=== PATIENT | male | born 1955 ===

== ENCOUNTER 2017-06-23 11:28 | Day surgery (SDC) | payer BC ==
[2017-06-15 10:52] VITALS: BMI 22.2
[2017-06-23] MEDS ORDERED: Propofol 10 mg/ml Inj (20 ML) ONE (13:25)
[2017-06-23] MEDS ORDERED: Sodium Chloride 0.9% 1,000 ML IV SCH (14:15)
[2017-06-23] MEDS ORDERED: Labetalol 5 mg/ml Inj 20ML IV ONE (15:07)
[2017-06-23] MEDS ORDERED: Labetalol 5 mg/ml Inj 20ML ONE (15:10)
[2017-06-23] MEDS ORDERED: Labetalol 5 mg/ml Inj 20ML IVP ONE (15:11)
[2017-06-23 15:17] VITALS: O2SAT 99
[2017-06-23 16:05] VITALS: BP 140/64; PULSE 68; RESP 16; TEMP 97.8
== END 2017-06-23 15:55 | disposition home or self-care (01) ==
LOC: ENDO 11:28
PROVIDERS: ATTEND Internal Medicine
DX: Z12.11 Encounter for screening for malignant neoplasm of colon (principal); D12.0 Benign neoplasm of cecum; D12.4 Benign neoplasm of descending colon; K63.5 Polyp of colon; K64.8 Other hemorrhoids
CPT/HCPCS: 45380; 82948; 88305; J2704; J7040 ×2